=== PATIENT | female | born 1930 | race Caucasian/White ===

== ENCOUNTER 2017-09-15 20:05 | Inpatient (IN) | payer OTHER ==
[2017-09-15 20:16] LABS: AADO2 Arterial 154.3 mmHg (7.0-24.0); Allen Test ACCEPTAB; Arterial Base Excess -0.9 mmol/L (-3.0-3); Arterial Blood Gas Oxygen Sat 68.3 mmHG (95.0-100.0); Arterial COHb 0.3 % (0.0-3.0); Arterial HCO3 23.6 mmol/L (22.0-26.0); Arterial MetHb 0.1 % (0.0-1.5); Arterial Total Hemglobin 13.6 g/dl (12.0-18.0); Arterial pCO2 38.8 mmhg (35-45); MODE NASAL CANNULA; Site Right Radial
[2017-09-15 20:23] LABS: ADD MAN DIFF? NO
[2017-09-15] MEDS: SOD CHLORIDE 0.9% 1,000 ML IV ×3 (20:23→22:34)
[2017-09-15 20:26] LABS: WHITE BLOOD COUNT 10.8 10^3/ul (4.8-10.8)
[2017-09-15 20:26] LABS: BASOPHILS % 0.3 % (0.0-2.0); EOSINOPHILS # 0.1 10^3/ul (0.0-0.5); EOSINOPHILS % 1.1 % (0.0-7.0); HEMATOCRIT 36.8 % (37.0-47.0); HEMOGLOBIN 12.2 g/dl (12.0-16.0); LYMPHOCYTES # 3.4 10^3/ul (0.8-2.9); LYMPHOCYTES % 31.3 % (15.0-51.0); MEAN CORPUSCULAR HEMOGLOBIN 33.1 pg (29.0-33.0); MEAN CORPUSCULAR HGB CONC 33.2 g/dl (32.0-37.0); MEAN CORPUSCULAR VOLUME 99.7 fl (82.0-101.0); MEAN PLATELET VOLUME 11.2 fl (7.4-10.4); MONOCYTE # 0.4 10^3/ul (0.3-0.9); MONOCYTES % 3.4 % (0.0-11.0); NEUTROPHIL # 6.9 10^3/ul (1.6-7.5); NEUTROPHILS % 63.5 % (39.0-77.0); PLATELET COUNT 233 10^3/UL (140-415); RED BLOOD COUNT 3.69 10^6/ul (4.20-5.40); RED CELL DISTRIBUTION WIDTH 14.1 % (11.5-14.5)
[2017-09-15] MEDS: ASPIRIN 81 MG TAB PO (20:30)
[2017-09-15] MEDS ORDERED: PHENYLephrine (100 MCG/ML) 5ML SYG IV (20:30)
[2017-09-15 20:40] LABS: PROTIME 12.2 Sec (11.9-14.9)
[2017-09-15 20:49] LABS: ALANINE AMINOTRANSFERASE 42 IU/L (13-69); ALBUMIN 2.7 g/dl (3.3-4.9); ALKALINE PHOSPHATASE 94 IU/L (42-121); ANION GAP 15 (8-16); ASPARTATE AMINO TRANSFERASE 89 IU/L (15-46); BILIRUBIN,INDIRECT 0.1 mg/dl (0-1.1); BILIRUBIN,TOTAL 0.1 mg/dl (0.2-1.3); BLOOD UREA NITROGEN 27 mg/dl (7-20); CARBON DIOXIDE 23 mmol/L (21-31); CHLORIDE 107 mmol/L (97-110); CREATININE 1.13 mg/dl (0.44-1.00); GLUCOSE 169 mg/dl (70-220); LIPASE 21 U/L (23-300); SODIUM 142 mmol/L (135-144); TOTAL PROTEIN 5.4 g/dl (6.1-8.1)
[2017-09-15] MEDS: HEPARIN 25000 UNITS/250 ML 250 ML IV (22:12)
[2017-09-15] MEDS: HEPARIN 1000 UNITS/ML 10 ML INJ IV (22:13)
[2017-09-15] MEDS: POTASSIUM CHLORIDE (SR) 20 MEQ TAB PO ×2 (22:23→23:14)
[2017-09-15] MEDS ORDERED: NITROGLYCERIN (SL) 0.4 MG TAB SL (23:00)
[2017-09-15] MEDS ORDERED: morphine 2 MG INJ IV (23:00)
[2017-09-15] MEDS ORDERED: ONDANSETRON 4 MG INJ IV (23:00)
[2017-09-15] MEDS ORDERED: ACETAMINOPHEN 650MG/20.3ML CUP PO (23:00)
[2017-09-15] MEDS: ALBUTEROL 0.083% (NEB) 2.5 MG/3 ML AMP HHN (23:19)
[2017-09-15] MEDS: CALCIUM GLUCONATE 10% 2 GM in DEXTROSE 5% 100 ML IVPB (23:29)
[2017-09-15] MEDS: FUROSEMIDE 40 MG INJ IV (23:30)
[2017-09-15 23:45] LABS: B-TYPE NATRIURETIC PEPTIDE 5750 PG/ML (0-450)
[2017-09-16 00:49] LABS: AADO2 Arterial 606.9 mmHg (7.0-24.0); Allen Test ACCEPTAB; Arterial Base Excess 2.8 mmol/L (-3.0-3); Arterial Blood Gas Oxygen Sat 88.7 mmHG (95.0-100.0); Arterial COHb 0.3 % (0.0-3.0); Arterial Fraction of Oxyhgb 88.3 % (93.0-99.0); Arterial HCO3 28.4 mmol/L (22.0-26.0); Arterial MetHb 0.2 % (0.0-1.5); Arterial Total Hemglobin 13.2 g/dl (12.0-18.0); Arterial pCO2 47.3 mmhg (35-45); Blood Gas IEPAP 15/5; MODE MASK - BIPAP; Site Right Radial
[2017-09-16] MEDS: POTASSIUM CHLORIDE (SR) 20 MEQ TAB PO (00:50)
[2017-09-16 02:07] LABS: INR 1.19; PROTIME 15.3 Sec (11.9-14.9); PT RATIO 1.2
[2017-09-16 04:08] LABS: PARTIAL THROMBOPLASTIN TIME > 180.0 Sec (25.0-35.0)
[2017-09-16] MEDS: PANTOPRAZOLE 40 MG INJ IV (05:11)
[2017-09-16 06:03] LABS: ADD MAN DIFF? NO
[2017-09-16 06:09] LABS: WHITE BLOOD COUNT 14.8 10^3/ul (4.8-10.8)
[2017-09-16 06:09] LABS: BASOPHILS % 0.1 % (0.0-2.0); EOSINOPHILS % 0.1 % (0.0-7.0); HEMOGLOBIN 11.4 g/dl (12.0-16.0); LYMPHOCYTES # 2.2 10^3/ul (0.8-2.9); LYMPHOCYTES % 14.6 % (15.0-51.0); MEAN CORPUSCULAR HEMOGLOBIN 33.8 pg (29.0-33.0); MEAN CORPUSCULAR HGB CONC 34.5 g/dl (32.0-37.0); MEAN CORPUSCULAR VOLUME 97.9 fl (82.0-101.0); MEAN PLATELET VOLUME 11.6 fl (7.4-10.4); MONOCYTE # 0.5 10^3/ul (0.3-0.9); MONOCYTES % 3.2 % (0.0-11.0); NEUTROPHIL # 12.1 10^3/ul (1.6-7.5); NEUTROPHILS % 81.8 % (39.0-77.0); PLATELET COUNT 242 10^3/UL (140-415); RED BLOOD COUNT 3.37 10^6/ul (4.20-5.40); RED CELL DISTRIBUTION WIDTH 14.2 % (11.5-14.5)
[2017-09-16 06:32] LABS: ANION GAP 12 (8-16); BLOOD UREA NITROGEN 32 mg/dl (7-20); CALCIUM 8.9 mg/dl (8.4-10.2); CARBON DIOXIDE 33 mmol/L (21-31); CHLORIDE 100 mmol/L (97-110); CREATININE 1.27 mg/dl (0.44-1.00); GLUCOSE 132 mg/dl (70-220); POTASSIUM 4.4 mmol/L (3.5-5.1); SODIUM 141 mmol/L (135-144)
[2017-09-16] MEDS: NORepinephrine 8MG/250 ML (PMX 250 ML IV (06:40)
[2017-09-16] MEDS: SOD CHLORIDE 0.9% 100 ML (07:20)
[2017-09-16] MEDS: IOHEXOL 100 ML (07:20)
[2017-09-16] MEDS: HEPARIN 1000 UNITS/ML 10 ML INJ IV ×2 (07:21→14:14)
[2017-09-16] MEDS ORDERED: PIPER-TAZO 3.375 GM IV (PMX) 100 ML IVPB (07:30)
[2017-09-16 07:53] LABS: HEMOGLOBIN A1C 5.9 % (0-5.9)
[2017-09-16 08:03] LABS: FREE T3 2.83 pg/ml (2.77-5.27)
[2017-09-16 08:04] LABS: FREE T4 (FREE THYROXINE) 0.62 ng/dl (0.85-1.93)
[2017-09-16] MEDS: PIPER-TAZO 3.375 GM IV (PMX) 100 ML IVPB ×3 (08:04→21:23)
[2017-09-16 08:19] LABS: Arterial Base Excess 2.9 mmol/L (-3.0-3); Arterial Blood Gas Oxygen Sat 95.7 mmHG (95.0-100.0); Arterial COHb 0 % (0.0-3.0); Arterial Fraction of Oxyhgb 95.5 % (93.0-99.0); Arterial HCO3 27.8 mmol/L (22.0-26.0); Arterial MetHb 0.2 % (0.0-1.5); Arterial Total Hemglobin 14.7 g/dl (12.0-18.0); Arterial pCO2 43.4 mmhg (35-45); Blood Gas IEPAP 15/5; MODE MASK - BIPAP; Site LB
[2017-09-16 10:10] LABS: CHOL/HDL RATIO 1.9 RATIO; HDL CHOLESTEROL 57 mg/dl (33-92); LDL CHOLESTEROL,CALCULATED 29 mg/dl; TRIGLYCERIDES 115 mg/dl (0-149)
[2017-09-16 10:10] LABS: CHOLESTEROL 109 mg/dl (100-200)
[2017-09-16 10:17] LABS: ADD UMIC YES; UR ASCORBIC ACID 40 mg/dL (NEGATIVE); UR BACTERIA FEW /HPF (NONE SEEN); UR BILIRUBIN (Dip) NEGATIVE (NEGATIVE); UR BLOOD (Dip) 3+ mg/dL (NEGATIVE); UR CLARITY CLOUDY (CLEAR); UR COLOR YELLOW (YELLOW); UR GLUCOSE (Dip) NEGATIVE (NEGATIVE); UR KETONES (Dip) NEGATIVE (NEGATIVE); UR LEUKOCYTE ESTERASE (Dip) TRACE Leu/ul (NEGATIVE); UR NITRITE (Dip) NEGATIVE (NEGATIVE); UR RBC > 182 /HPF (0-5); UR SPECIFIC GRAVITY (Dip) 1.046 (1.003-1.030); UR TOTAL PROTEIN (Dip) 1+ mg/dl (NEGATIVE); UR UROBILINOGEN (Dip) NEGATIVE (NEGATIVE); UR WBC 29 /HPF (0-5)
[2017-09-16] MEDS ORDERED: VANCOMYCIN IV PER PHARMACY XX (10:30)
[2017-09-16 10:53] LABS: CREATINE KINASE 824 IU/L (23-200)
[2017-09-16 11:01] LABS: PARTIAL THROMBOPLASTIN TIME > 180.0 Sec (25.0-35.0)
[2017-09-16 11:01] LABS: PARTIAL THROMBOPLASTIN TIME 83.9 Sec (25.0-35.0)
[2017-09-16 11:05] LABS: CK INDEX 8.7
[2017-09-16] MEDS: VANCOMYCIN 1.5 GM in SOD CHLORIDE 0.9% 250 ML IVPB (11:51)
[2017-09-16 13:17] LABS: PARTIAL THROMBOPLASTIN TIME 34.1 Sec (25.0-35.0)
[2017-09-16] MEDS: FUROSEMIDE 20 MG INJ IV ×2 (13:20→18:50)
[2017-09-16] MEDS: HEPARIN 25000 UNITS/250 ML 250 ML IV (14:14)
[2017-09-16 14:57] LABS: CREATINE KINASE 730 IU/L (23-200)
[2017-09-16 15:09] LABS: CK INDEX 8.6
[2017-09-16 18:25] LABS: CREATINE KINASE 571 IU/L (23-200)
[2017-09-16] MEDS ORDERED: NORepinephrine 8MG/250 ML (PMX 250 ML IV (19:00)
[2017-09-16] MEDS: ATORVASTATIN 80 MG TAB PO (21:23)
[2017-09-16 21:55] LABS: PARTIAL THROMBOPLASTIN TIME > 180.0 Sec (25.0-35.0)
[2017-09-17 01:04] LABS: AADO2 Arterial 610.7 mmHg (7.0-24.0); Allen Test ACCEPTAB; Arterial Base Excess -2.3 mmol/L (-3.0-3); Arterial Blood Gas Oxygen Sat 95.4 mmHG (95.0-100.0); Arterial COHb 0.3 % (0.0-3.0); Arterial HCO3 19.9 mmol/L (22.0-26.0); Arterial MetHb 0.1 % (0.0-1.5); Arterial Total Hemglobin 11.4 g/dl (12.0-18.0); Arterial pCO2 26.7 mmhg (35-45); Blood Gas IEPAP 15/5; MODE MASK - BIPAP; Site Right Radial
[2017-09-17 01:07] LABS: ADD MAN DIFF? NO
[2017-09-17 01:11] LABS: BASOPHILS % 0.1 % (0.0-2.0); EOSINOPHILS % 0.2 % (0.0-7.0); HEMATOCRIT 29.2 % (37.0-47.0); HEMOGLOBIN 9.7 g/dl (12.0-16.0); LYMPHOCYTES % 20.3 % (15.0-51.0); MEAN CORPUSCULAR HEMOGLOBIN 33.2 pg (29.0-33.0); MEAN CORPUSCULAR HGB CONC 33.2 g/dl (32.0-37.0); MEAN PLATELET VOLUME 11.5 fl (7.4-10.4); MONOCYTE # 0.4 10^3/ul (0.3-0.9); MONOCYTES % 2.6 % (0.0-11.0); NEUTROPHIL # 11.3 10^3/ul (1.6-7.5); NEUTROPHILS % 75.8 % (39.0-77.0); PLATELET COUNT 216 10^3/UL (140-415); RED BLOOD COUNT 2.92 10^6/ul (4.20-5.40); RED CELL DISTRIBUTION WIDTH 14.6 % (11.5-14.5)
[2017-09-17 01:11] LABS: WHITE BLOOD COUNT 14.9 10^3/ul (4.8-10.8)
[2017-09-17 01:41] LABS: ANION GAP 18 (8-16); BLOOD UREA NITROGEN 32 mg/dl (7-20); CALCIUM 8.2 mg/dl (8.4-10.2); CARBON DIOXIDE 26 mmol/L (21-31); CHLORIDE 100 mmol/L (97-110); CREATININE 1.52 mg/dl (0.44-1.00); GLUCOSE 208 mg/dl (70-220); POTASSIUM 4.2 mmol/L (3.5-5.1); SODIUM 140 mmol/L (135-144)
[2017-09-17] MEDS ORDERED: PHENYLephrine 20MG IN 250 ML 250 ML (01:44)
[2017-09-17] MEDS ORDERED: FUROSEMIDE 40 MG INJ ×2 (01:45→01:56)
[2017-09-17 01:52] LABS: PARTIAL THROMBOPLASTIN TIME 46.7 Sec (25.0-35.0)
[2017-09-17] MEDS ORDERED: NITROGLYCERIN 2% 1 GM OINT PKT (01:56)
[2017-09-17] MEDS ORDERED: PHENYLephrine 20MG IN 250 ML 250 ML IV (02:00)
[2017-09-17] MEDS ORDERED: VASOPRESSIN 60 UNIT in DEXTROSE 5% 57 ML IV (02:00)
[2017-09-17] MEDS ORDERED: NITROGLYCERIN 0.4 MG/HR PATCH TRANSDERM (02:00)
[2017-09-17] MEDS ORDERED: FUROSEMIDE 40 MG INJ IV (02:00)
[2017-09-17 02:41] LABS: LACTIC ACID 6.2 mmol/L (0.5-2.0)
[2017-09-17] MEDS ORDERED: ASPIRIN 325 MG TAB PO (09:00)
[2017-09-17 09:34] LABS: CREATINE KINASE 369 IU/L (23-200)
[2017-09-17 09:47] LABS: CK INDEX 3.1
[2017-09-18] MEDS ORDERED: VANCOMYCIN 1.25 GM in SOD CHLORIDE 0.9% 250 ML IVPB (12:00)
== END 2017-09-17 05:33 | disposition expired ==
LOC: ICU 22:37 → E/R 20:05
PROC: 5A09357 Assistance with Respiratory Ventilation, Less than 24 Consecutive Hours, Continuous Positive Airway Pressure (ICD-10-PCS; principal; 2017-09-15)
PROC: 5A1935Z Respiratory Ventilation, Less than 24 Consecutive Hours (ICD-10-PCS; 2017-09-17)
PROC: 0BH17EZ Insertion of Endotracheal Airway into Trachea, Via Natural or Artificial Opening (ICD-10-PCS; 2017-09-17)
DX: I21.4 Non-ST elevation (NSTEMI) myocardial infarction (principal); I50.41 Acute combined systolic (congestive) and diastolic (congestive) heart failure; J96.01 Acute respiratory failure with hypoxia; R57.0 Cardiogenic shock; I25.110 Atherosclerotic heart disease of native coronary artery with unstable angina pectoris; I11.0 Hypertensive heart disease with heart failure; E87.6 Hypokalemia; E83.51 Hypocalcemia; I34.0 Nonrheumatic mitral (valve) insufficiency; E02 Subclinical iodine-deficiency hypothyroidism; N28.1 Cyst of kidney, acquired
CPT/HCPCS: 31500; 36600; 71045; 71275; 76775; 80048; 80053; 80061; 81001; 82550; 82553; 82803; 82962; 83036; 83605; 83690; 83735; 83880; 84439; 84443; 84481; 84484; 85025; 85610; 85730; 87040; 87081; 87086; 92950; 93005; 93306; 93970; 94002; 94660; 94664; J1940